=== PATIENT | male | born 1995 | race Caucasian/White ===

== ENCOUNTER 2021-11-30 11:05 | Emergency (ER) | payer SELFPAY ==
[~2021-11-30] VITALS: Ht 188 cm; Wt 81.7 kg
[2021-11-30] MEDS ORDERED: DEXT30SU PO (11:33)
== END 2021-11-30 11:46 | disposition home or self-care (01) ==
LOC: ER 11:05
DX: U07.1 COVID-19 (principal)
CPT/HCPCS: 99282